=== PATIENT | female | born 1940 | race Caucasian/White ===

== ENCOUNTER 2023-06-13 13:34 | Outpatient (CLI) | payer MEDICARE, OTHER, SELFPAY ==
--- NOTE | 2023-06-13 13:48 | ECG_ITS ---
Measurements Intervals [place] Rate: 88 P: 87 AL: 194 QRS: 69 QRSD: 70 T: 51 QT: 341 QTc: 413 Interpretive Statements SINUS RHYTHM LOW QRS VOLTAGE IN PRECORDIAL LEADS CONSIDER ANTERIOR INFARCT, AGE INDETERMINATE MINIMAL Q WAVES- INFERIOR LEADS BASELINE ARTIFACT- I, II, III, AVR, AVL, AVF, V2-V6 ABNORMAL ECG NO PREVIOUS ECG AVAILABLE FOR COMPARISON Electronically Signed On 06-13-2023 15:00:25 [facility] by Chaitanya Beckford D.O.
[2023-06-13 14:46] LABS: Anion Gap 13 mmol/L (8-16); Blood Urea Nitrogen 14 mg/dL (7-17); Calcium 9.1 mg/dL (8.4-10.2); Carbon Dioxide 22 mmol/L (22-30); Chloride 102 mmol/L (98-107); Estimated Glomerular Filt Rate > 60; Glucose 139 mg/dL (65-110); Potassium 3.7 mmol/L (3.4-5.0); Sodium 137 mmol/L (137-145)
[2023-06-13 15:06] LABS: Prothrombin Time 13.6 Seconds (11.1-14.7)
[2023-06-13 15:07] LABS: Partial Thromboplastin Time 34.1 SECONDS (22.3-36.8)
== END 2023-06-13 13:35 | disposition home or self-care (01) ==
LOC: ANHSURGERY 13:43
PROVIDERS: Anesthesiology; PCP Physician Assistant; Visit Provider Urology
DX: Z51.81 Encounter for therapeutic drug level monitoring (principal); I10 Essential (primary) hypertension; N20.0 Calculus of kidney; Z01.818 Encounter for other preprocedural examination
CPT/HCPCS: 36415; 80048; 85610; 85730; 93005